=== PATIENT | male | born 1980 | race American Indian/Alaskan Native ===

== ENCOUNTER 2019-02-27 14:54 | Emergency (ER) | payer SELFPAY ==
[2019-02-27 15:15] VITALS: BP 131/68
--- NOTE | 2019-02-27 15:22 | Event Note ---
ED Screening Note Date of service: 02/27/19 Time: 15:14 ED Screening Note: 38 y o male presenst with throat and chest pain thats worsened with swallowing and eating This initial assessment/diagnostic orders/clinical plan/treatment(s) is/are subject to change based on patients health status, clinical progression and re- assessment by fellow clinical providers in the ED. Further treatment and workup at subsequent clinical providers discretion. Patient/guardian urged not to elope from the ED as their condition may be serious if not clinically assessed and managed. Initial orders include: rapid strep cxr
[2019-02-27] MEDS ORDERED: PROVENTIL IH ONE (15:35)
[2019-02-27] MEDS ORDERED: TYLENOL PO ONE (15:35)
--- NOTE | 2019-02-27 15:35 | Emergency Department Report ---
Minor Respiratory - HPI Chief Complaint: Upper Respiratory Infection Stated Complaint: PAIN IN CHEST WHEN COUGH Time Seen by Provider: 02/27/19 15:14 Duration: 1 Day Pain Location: Throat, Chest (w cough only) Severity: moderate Minor Respiratory: Yes Sore Throat, Yes Able to Tolerate Fluids, Yes Cough, Yes Sick Contacts, Yes Chest Pain, Yes Fever, No Rhinorrhea, No Ear Pain, No Hemoptysis, No Shortness of Breath Other History: c/o feeling generally weak today. sx of cough, sore throat, myalgias onset today w/ fever ED Review of Systems ROS: Stated complaint: PAIN IN CHEST WHEN COUGH Other details as noted in HPI Comment: All other systems reviewed and negative ENT: as per HPI Respiratory: see HPI ED Past Medical Hx - Past Medical History Previous Medical History?: No - Surgical History Past Surgical History?: No - Social History Smoking Status: Current Every Day Smoker Substance Use Type: Alcohol - Medications Home Medications: Home Medications Medication Instructions Recorded Confirmed Last Taken Type Albuterol Sulfate [Proair 180 mcg IH Q6HR #1 aer.pow.ba 02/27/19 Unknown Rx Respiclick] methylPREDNISolone [Medrol 4MG 4 mg PO DAILY #1 tab.ds.pk 02/27/19 Unknown Rx DOSEPAK (21 tabs)] Minor Respiratory Exam - Exam General: Vital signs noted. No distress. Alert and acting appropriately. HEENT: Yes Pharyngeal Erythema, Yes Moist Mucous Membranes, No Pharyngeal Exudates, No Rhinorrhea, No Conjuctival Injection, No Frontal Tenderness, No Maxillary Tenderness Ear: Neither TM Bulge, Neither TM Erythema, Neither EAC Pain, Neither EAC Discharge Neck: Yes Supple, No Adenopathy Lungs: Yes Good Air Exchange, Yes Wheezes, No Ronchi, No Stridor, No Cough, No Labored Respirations, No Retractions, No Use of Accessory Muscles, No Other Abnormal Lung Sounds Heart: Yes Regular, No Murmur Abdomen: Yes Normal Bowel Sounds, No Tenderness, No Peritoneal Signs Skin: No Rash, No Edema Neurologic: Alert and oriented, no deficits. Musculoskeletal: Unremarkable. ED Course Vital Signs 02/27/19 15:13 Temperature 100.0 F H Pulse Rate 92 H Respiratory 18 Rate Blood Pressure 131/68 O2 Sat by Pulse 98 Oximetry ED Medical Decision Making - Lab Data Lab Results 02/27/19 02/27/19 Range/Units 15:16 Unknown Influenza A (Rapid) Negative (Negative) Influenza B (Rapid) Negative (Negative) Group A Strep Rapid Negative (Negative) - Radiology Data Radiology results: report reviewed normal 2 view chest - Medical Decision Making pt with URI/flu like sx well appearing/nontoxic no meningeal signs suspect viral process; given albuterol, tylenol cxr clear, flu/strep neg fu pcp - Differential Diagnosis flu, strep, pna, viral syndrome Critical care attestation.: If time is entered above; I have spent that time in minutes in the direct care of this critically ill patient, excluding procedure time. ED Disposition Clinical Impression: Viral syndrome Disposition: DC-01 TO HOME OR SELFCARE Is pt being admited?: No Condition: Good Instructions: Viral Syndrome (ED) Prescriptions: methylPREDNISolone [Medrol 4MG DOSEPAK (21 tabs)] 4 mg PO DAILY #1 tab.ds.pk Albuterol Sulfate [Proair Respiclick] 180 mcg IH Q6HR #1 aer.pow.ba Referrals: HENRI SHELLEY MD [Staff Physician] - 3-5 Days Time of Disposition: 16:37
--- NOTE | 2019-02-27 15:57 | XRay Report ---
PA AND LATERAL CXR HISTORY: Chest pain. COMPARISON: None FINDINGS: Cardiomediastinal silhouette: Normal cardiac size. Normal mediastinal contours. Lungs: Normal expansion. Normal lung aeration. No pleural effusions. No pneumothorax. Pulmonary vascularity: Normal. Support hardware: None. Additional findings: None. IMPRESSION: Normal chest. Signer Name: Diego Lo MD Signed: 02/27/2019 3:53 PM Workstation Name: [id number]
== END 2019-02-27 17:29 | disposition home or self-care (01) ==
LOC: ED 14:54
DX: B34.9 Viral infection, unspecified (principal); F17.200 Nicotine dependence, unspecified, uncomplicated; Z79.899 Other long term (current) drug therapy
CPT/HCPCS: 71046; 87116; 87400; 87430; 99284

== ENCOUNTER 2019-06-16 05:44 | Emergency (ER) | payer SELFPAY ==
[2019-06-16 05:55] VITALS: BP 121/66
--- NOTE | 2019-06-16 08:22 | Emergency Department Report ---
Blank Doc - Documentation Documentation: I attempted to evaluate patient twice in the exam room, each time there was no one present in the exam room, it appears patient has eloped from the emergency department, I never evaluated patient.
== END 2019-06-16 08:21 | disposition left against medical advice (07) ==
LOC: ED 05:44
DX: M54.89 Other dorsalgia (principal); Z53.21 Procedure and treatment not carried out due to patient leaving prior to being seen by health care provider